=== PATIENT | female | born 1955 | race Native Hawaiian/Other Pacific Islander ===

== ENCOUNTER 2018-03-28 11:09 | Outpatient (CLI) | payer BC | END 2018-03-28 20:00 | disposition home or self-care (01) | LOC: MAMMO 11:09 | DX: Z12.31 Encounter for screening mammogram for malignant neoplasm of breast (principal) ==

== ENCOUNTER 2020-04-01 11:24 | Outpatient (CLI) | payer BC | END 2020-04-01 23:25 | disposition home or self-care (01) | LOC: MAMMO 11:24 | DX: Z12.31 Encounter for screening mammogram for malignant neoplasm of breast (principal) ==

== ENCOUNTER 2021-07-22 08:10 | Outpatient (CLI) | payer BC | END 2021-07-22 18:51 | disposition home or self-care (01) | LOC: MAMMO 08:10 | PROVIDERS: ATTEND Specialist | DX: Z12.31 Encounter for screening mammogram for malignant neoplasm of breast (principal) ==

== ENCOUNTER 2022-07-24 08:21 | Outpatient (CLI) | payer BC | END 2022-07-24 18:52 | disposition home or self-care (01) | LOC: MAMMO 08:21 | PROVIDERS: ATTEND Specialist | DX: Z12.31 Encounter for screening mammogram for malignant neoplasm of breast (principal) ==